=== PATIENT | female | born 1960 | race Caucasian/White ===

== ENCOUNTER → 2016-08-26 | Outpatient (CLI) | payer OTHER ==
[~2016-08-26] MED LIST: ACETAMINOPHEN; ALBUTEROL17 GM INH; AMOXICILLIN875 MG PO; BACTRIM DS TABL1 TA1 PO; BENADRYL; BENZONATATE PO; CLARITIN10 M3; FIORINAL CAPSUL1 CAP PO; FLEXERIL PO; FLEXERIL10 M1 PO; FLEXERIL10 MG PO; HYDROXYZINE HCL25 M1 PO; IBUPROFEN600 MG PO; LORTAB 10-5001 EACH; LORTAB 2.5/5001 TAB PO; LORTAB 5/500 TA1 TA2 PO; LORTAB 7.5-5001 TAB PO; MEDROL PO; MOBIC PO; MOTRIN400 M1 PO; MULTI VITAMIN1 EACH PO; NO MEDICATIONS; PHENERGAN25 M1 PO; PREDNISONE PO; PREVACID PO; PROTONIX PO; SUDAFED30 M1 PO; ULTRAM PO; VICODIN 5-3001 EACH PO; VOLTAREN75 MG PO; WELLBUTRIN PO
--- NOTE | ~2016-08-26 | CR181 ---
[facility] A Service of [facility] RADIOLOGY TEXT RESULTS PATIENT: MELVIN HENRY LOCATION: [facility] : 60 UNIT #: [id number] AGE: [address]: Callum Flores MD SEX: F ORDER DR: [id number] [facility]. [place], [place] [address] [id number] O MR#: [id number] Acc #: [id number] NAME: MELVIN HENRY : 1960 SEX: F STUDY DATE/TIME: 08/26/2016 10:05 UNIT: [facility] ROOM: STUDY DESCRIPTION: CR Lumbar Spine 2 or 3 Views Attending Physician: Callum Flores M.D. Ordering Physician: Callum Flores M.D. MEDICAL IMAGING REPORT This report is preliminary unless electronic signature is present EXAM Lumbar spine series HISTORY Chronic back pain and right hip pain for the past many years but worsening of symptoms over the past 6 weeks. TECHNIQUE/COMPARISON 3 views lumbar spine were obtained and compared with 05/14/2015 FINDINGS Alignment is satisfactory. Disc space heights are preserved. Osteophyte formation is seen at all lumbar levels most prominently at L2-3. Since the previous examination, degenerative disc disease at L2-3 has increased slightly. The other lumbar levels show no significant change. No fractures or destructive bone lesions are seen. No acute findings. IMPRESSION Mild degenerative disc disease at all lumbar levels with moderate degenerative disc disease at L2-3. The L2-3 level shows slight worsening of degenerative change since the previous examination in 2014. Dictated by... Julian Mcdowell M.D. THIS IS AN ELECTRONICALLY VERIFIED REPORT Julian Mcdowell M.D. at 08/26/2016 3:44 PM RLF/to TD: 08/26/2016 11:59 JOB #: [id number] MEDICAL IMAGING REPORT [facility] A Service [facility] RADIOLOGY TEXT RESULTS PATIENT: MELVIN HENRY LOCATION: [facility] : 60 UNIT #: [id number] AGE: [address]: Callum Flores MD SEX: F ORDER DR: Page 1 of 1 COPY
--- NOTE | ~2016-08-26 | CR151 ---
[facility] A Service of [facility] RADIOLOGY TEXT RESULTS PATIENT: MELVIN HENRY LOCATION: [facility] : 60 UNIT #: [id number] AGE: [address]: Callum Flores MD SEX: F ORDER DR: [id number] [facility] [address]. [place], [place] [address] [id number] O MR#: [id number] Acc #: [id number] NAME: MELVIN HENRY : 1960 SEX: F STUDY DATE/TIME: 08/26/2016 10:05 UNIT: [facility] ROOM: STUDY DESCRIPTION: CR Hip Min 2 Views Rt Attending Physician: Callum Flores M.D. Ordering Physician: Callum Flores M.D. MEDICAL IMAGING REPORT This report is preliminary unless electronic signature is present EXAM Right hip HISTORY Pelvic and right hip pain chronically for many years but worse over the past 6 weeks. TECHNIQUE 2 views the right hip were obtained and compared with 07/15/2014. FINDINGS AP and oblique examination of the hip shows adequate mineralization of the bones and a normal anatomic relationship of the femoral head with the acetabulum. There are no hypertrophic changes, fractures, dislocation, or joint capsular distension. No radiopaque foreign body is present about the soft tissues of the hip. IMPRESSION Normal hip. Dictated by... Julian Mcdowell M.D. THIS IS AN ELECTRONICALLY VERIFIED REPORT Julian Mcdowell M.D. at 08/26/2016 3:44 PM URIAH/jamir TD: 08/26/2016 12:00 JOB #: [id number] MEDICAL IMAGING REPORT Page 1 of 1 COPY
== END | disposition home or self-care (01) ==
LOC: CRAD 09:31
DX: M25.551 Pain in right hip (principal); M54.9 Dorsalgia, unspecified; M51.36 Other intervertebral disc degeneration, lumbar region; M47.816 Spondylosis without myelopathy or radiculopathy, lumbar region
CPT/HCPCS: 72100; 73502

== ENCOUNTER 2017-01-06 16:22 | Emergency (ER) | payer OTHER ==
[2017-01-06 17:54] LABS: BASOPHIL% 0.4 % (0-2.5); EOSINOPHIL# 0.1 X10e3 (0-0.7); EOSINOPHIL% 0.8 % (0.0-7.0); HEMATOCRIT 43.1 % (35.0-45.0); LYMPHOCYTE# 1.6 X10e3 (1.0-3.5); LYMPHOCYTE% 13.9 % (17.0-45.0); MEAN CELL VOLUME 87.2 FL (83-96); MEAN CORPUSCULAR HEMOGLOBIN 28.3 PG (28-34); MEAN CORPUSCULAR HGB CONC 32.4 g/dL (30-36); MEAN PLATELET VOLUME 8.6 FL (6.5-11.5); MONOCYTE# 0.6 X10e3 (0-1.0); MONOCYTE% 4.7 % (3.0-12.0); NEUTROPHIL# 9.5 X10e3 (1.5-7.1); NEUTROPHIL% 80.2 % (40-75); PLATELET COUNT 350 X10e3 (140-420); RED BLOOD COUNT 4.95 X10e (3.90-5.30); RED CELL DISTRIBUTION WIDTH 13.8 % (11.0-15.5); WHITE BLOOD COUNT 11.8 X10e3 (4.0-10.5)
[2017-01-06 18:03] LABS: DIFF IND NO
[2017-01-06 18:19] LABS: BILIRUBIN, DIRECT 0.1 mg/dL (0.0-0.2); BILIRUBIN,INDIRECT 0.2 mg/dL (0.0-0.9); BILIRUBIN,TOTAL 0.3 mg/dL (0.2-2.0); BUN/CREATININE RATIO 11.81; CALCIUM SERUM 9.5 mg/dL (8.4-10.2); CREATININE SERUM 1.1 mg/dL (0.6-1.4); GLOM FILT RATE Estimated 56.1 mL/min (>60); POTASSIUM 4.6 mmol/L (3.5-5.1); PROTEIN TOTAL SERUM 7.3 g/dL (6.0-8.3)
[2017-01-06 18:28] LABS: URINE SOURCE CLEAN CATCH
[2017-01-06 18:39] LABS: URINE APPEARANCE CLEAR; URINE BILIRUBIN NEG (NEG); URINE BLOOD NEG (NEG); URINE COLOR YELLOW; URINE GLUCOSE NEG (NEG); URINE KETONE NEG (NEG); URINE LEUKOCYTE ESTERASE NEG (NEG); URINE NITRATE NEG (NEG); URINE PH 5.5 (5-8); URINE PROTEIN NEG (NEG); URINE SPECIFIC GRAVITY 1.009 (1.003-1.035); URINE UROBILINOGEN 0.2 MG/DL (NEG)
[2017-01-06 18:44] LABS: CULTURE INDICATED? NO
== END 2017-01-06 19:05 | disposition home or self-care (01) ==
LOC: CED 16:22
PROVIDERS: Emergency Medicine
DX: R19.7 Diarrhea, unspecified (principal); L29.9 Pruritus, unspecified; F17.210 Nicotine dependence, cigarettes, uncomplicated; Z90.89 Acquired absence of other organs; Z79.899 Other long term (current) drug therapy; Z88.5 Allergy status to narcotic agent
CPT/HCPCS: 36415; 80048; 80076; 81003; 82150; 83690; 85025; 96361; 96374; 96375; 99284; J1200; J2930